=== PATIENT | female | born 1940 | race Caucasian/White ===

== ENCOUNTER 2023-01-10 14:13 | Outpatient (CLI) | payer MEDICARE, BC | END 2023-01-10 14:14 | disposition home or self-care (01) | LOC: CSHMAMMO 14:13 → EDBD 14:30 | PROVIDERS: ATTEND Nurse Practitioner Family | DX: Z12.31 Encounter for screening mammogram for malignant neoplasm of breast (principal); Z91.89 Other specified personal risk factors, not elsewhere classified | CPT/HCPCS: 77063; 77067 ==

== ENCOUNTER 2024-01-12 10:13 | Outpatient (CLI) | payer MEDICARE, BC | END 2024-01-12 10:14 | disposition home or self-care (01) | LOC: CSHMAMMO 10:13 | PROVIDERS: ATTEND Nurse Practitioner Family | DX: Z12.31 Encounter for screening mammogram for malignant neoplasm of breast (principal); Z13.820 Encounter for screening for osteoporosis; M85.839 Other specified disorders of bone density and structure, unspecified forearm; Z78.0 Asymptomatic menopausal state; Z91.89 Other specified personal risk factors, not elsewhere classified | CPT/HCPCS: 77063; 77067; 77080 ==